=== PATIENT | female | born 1950 | race Caucasian/White ===

== ENCOUNTER → 2024-02-15 10:28 | Outpatient (CLI) | payer MEDICARE, SELFPAY ==
--- NOTE | 2024-02-15 10:31 | DI.ECHO.S_ITS ---
[place] [facility]---------[facility] : : [address] : [address] : : [id number] : : Phone: [phone] Echocardiogram Report + + :Name: MARLINE OVALLES Study Date: 02/15/2024 Height: 61 in : :[facility] ReadingLocation: Weight: 142 lb : : Gender: Female BSA: 1.6 m2 : :: 1950 Age: 73 yrs BP: 199/88 mmHg: :Reason For Study: MODERATE MITRAL REGURGITATION : :Ordering Physician: DAYANNA, : :DEBBIE Performed By: Omkar Boss : :Referring: DEBBIE ALAN : + + Interpretation Summary The left ventricle is normal in size. The ejection fraction is estimated to be 55-60%. The right ventricle is at the upper limits of normal in size. The right ventricular systolic function is normal. The left atrium is severely dilated.A patent foramen ovale is suspected. There is mild mitral valve prolapse. There is prolapse of the anterior mitral valve leaflet. There is moderate to severe mitral regurgitation. The mitral regurgitant jet is eccentrically directed. There is borderline tricuspid valve prolapse. There is moderate tricuspid regurgitation. The right ventricular systolic pressure is estimated to be at least 67 mmHg based on an estimated right atrial pressure of 3 mm Hg. There is severe pulmonary hypertension. BP: 199/88 mmHg Procedure: A two-dimensional transthoracic echocardiogram with color flow and Doppler was performed. The study quality was technically good. There is no prior echocardiogram noted for this patient. The patient was in normal sinus rhythm during the exam. The patient had a bundle branch block rhythm during the exam. Left Ventricle: The left ventricle is normal in size. There is normal left ventricular wall thickness. There is no thrombus. The ejection fraction is estimated to be 55-60%. There are no focal wall motion abnormalities. MV E/A: 0.82 Med Peak E' Carlitos: 6.7 cm/sec E/E' med: 11.8. Right Ventricle: The right ventricle is at the upper limits of normal in size. The right ventricular systolic function is normal. Atria: The left atrium is severely dilated. The right atrium is mildly dilated. The interatrial septum bows toward right atrium consistent with elevated left atrial pressure. A patent foramen ovale is suspected. Mitral Valve: The mitral valve leaflets appear mildly thickened, but open well. There is mild mitral valve prolapse. There is prolapse of the anterior mitral valve leaflet. There is moderate to severe mitral regurgitation. The mitral regurgitant jet is eccentrically directed. Aortic Valve: The aortic valve is trileaflet. The aortic valve opens well. There is no aortic valve stenosis. There is no aortic regurgitation. Tricuspid Valve: There is borderline tricuspid valve prolapse. There is moderate tricuspid regurgitation. The right ventricular systolic pressure is estimated to be at least 67 mmHg based on an estimated right atrial pressure of 3 mm Hg. There is severe pulmonary hypertension. Pulmonic Valve: The pulmonic valve is normal in structure and function. There is trace pulmonic regurgitation. Great Vessels: The aortic root is normal size. The dimensions of the ascending aorta are normal. The pulmonary artery is normal size. The IVC is of normal diameter and collapses greater than 50% with a sniff. This suggests a low right atrial pressure of 3 mm Hg. Pericardium/ Pleura There is no pericardial effusion. There is no pleural effusion. MMode/2D Measurements & Calculations LVIDd: 5.5 cm LVOT diam: 2.3 cm LVIDs: 3.3 cm Ao root diam: 3.4 cm FS: 40.2 % asc Aorta Diam: 3.0 cm EPSS: 0.55 cm Ao Arch Diam (Prox Trans): 2.4 cm IVSd: 0.68 cm LVPWd: 0.81 cm LV chaudhary. diameter/BSA (cm/m^2): 3.3 LV sys. diameter/BSA (cm/m^2): 2.0 LA A2 area: 26.7 cm2 RA long axis: 5.1 cm LA A4 area: 24.8 cm2 RA area: 18.5 cm2 LA length (vol): 5.9 cm RA vol: 57.6 ml LA vol: 94.4 ml RA : 35.3 ml/m2 LA vol index: 57.8 ml/m2 IVC diam: 2.0 cm RVD1 (basal): 3.8 cm TAPSE: 3.2 cm Doppler Measurements & Calculations Ao V2 max: 157.6 cm/sec LVOT Max Carlitos: 105.9 cm/sec Ao V2 mean: 104.2 cm/sec LV V1 max P.5 mmHg Ao max P.9 mmHg LV V1 VTI: 24.3 cm Ao mean P.0 mmHg VAHID(I,D): 2.9 cm2 Ao V2 VTI: 34.1 cm VAHID(V,D): 2.7 cm2 sev ratio: 0.71 VAHID indexed to BSA (cm^2/m^2): 1.8 MV E max carlitos: 79.3 cm/sec TR max carlitos: 401.4 cm/sec MV A max carlitos: 97.3 cm/sec TR max P.4 mmHg MV E/A: 0.82 PA V2 max: 80.9 cm/sec Med Peak E' Carlitos: 6.7 cm/sec PA V2 mean: 49.1 cm/sec E/E' med: 11.8 PA mean P.1 mmHg Lat Peak E' Carlitos: 10.4 cm/sec PA pr(Accel): 25.9 mmHg E/E' lat: 7.6 E/e' average: 9.7 MV dec time: 0.19 sec SV(LVOT): 99.2 ml Reading Physician:05:09 PM
== END ==
PROVIDERS: PCP Nurse Practitioner Acute Care; Referring Provider Nurse Practitioner Acute Care; Visit Provider Nurse Practitioner Acute Care
DX: I08.1 Rheumatic disorders of both mitral and tricuspid valves (principal); I27.20 Pulmonary hypertension, unspecified
CPT/HCPCS: 93306

== ENCOUNTER → 2024-12-26 09:10 | Outpatient (CLI) | payer MEDICARE, SELFPAY ==
--- NOTE | 2024-12-26 09:16 | DI.ECHO.S_ITS ---
:Name: MARLINE OVALLES Study Date: 12/26/2024 Height: 61 in : :[facility] ReadingLocation: Weight: 143 lb : : Gender: Female BSA: 1.6 m2 : :: 1950 Age: 74 yrs BP: 120/80 mmHg: :Reason For Study: ATRIAL FIBRILLATION : :Ordering Physician: GAMAL HAN Performed By: Daisy Winchester : :Referring: GAMAL HAN : + + Interpretation Summary The patient was in atrial fibrillation with heart rates between 98-132 bpm during the exam. Previously sinus. The left ventricle is normal in size. The ejection fraction is estimated to be 20-25%. Previous LVEF 50 to 55% Left ventricular systolic function is severely reduced. There is severe global hypokinesis of the left ventricle. The right ventricle is mild to moderately dilated. Right ventricular systolic function is moderately reduced. A mitral valve clip is present. There is mild to moderate mitral regurgitation. Mean gradient across mitral valve about 4 mmHg. There is mild aortic regurgitation. The tricuspid annulus is dilated. There is moderate to severe tricuspid regurgitation. Compared to the prior echo exam, there has been an increase in TR severity. The right ventricular systolic pressure is estimated to be at least 50 mmHg based on an estimated right atrial pressure of 15 mm Hg. Previously 56 mmHg. There is a small pericardial effusion noted. No echo indication of cardiac tamponade. Procedure: A two-dimensional transthoracic echocardiogram with color flow and Doppler was performed. The study quality was technically adequate. Patient was scanned in a supine and mostly seated position due to coughing when laying down. Comparison is made with the echocardiogram of 06/20/2024. The patient was in atrial fibrillation with heart rates between 98-132 bpm during the exam. The patient had a bundle branch block rhythm during the exam. Left Ventricle: The left ventricle is normal in size. Left ventricular wall thickness is borderline increased. There is no thrombus. The ejection fraction is estimated to be 20-25%. Left ventricular systolic function is severely reduced. There is severe global hypokinesis of the left ventricle. Diastolic function could not be accurately assessed due to atrial fibrillation. Right Ventricle: The right ventricle is mild to moderately dilated. Right ventricular systolic function is moderately reduced. Atria: The left atrium is severely dilated. There has been no significant change since the previous study. The right atrium is severely dilated. A patent foramen ovale is present. Mitral Valve: A mitral valve clip is present. Mean gradient across mitral valve about 4 mmHg. There is mild to moderate mitral regurgitation. There are multiple regurgitant jets present. Aortic Valve: The aortic valve is trileaflet. The aortic valve opens well. The left ventricular stroke volume index is 13.21 ml/m?? (normal being >35 ml/m??). There is mild aortic regurgitation. Tricuspid Valve: The tricuspid annulus is dilated. There is moderate to severe tricuspid regurgitation. The right ventricular systolic pressure is estimated to be at least 50 mmHg based on an estimated right atrial pressure of 15 mm Hg. Compared to the prior echo exam, there has been an increase in TR severity. Pulmonic Valve: The pulmonic valve leaflets are thin and pliable; valve motion is normal. There is mild pulmonic regurgitation. Great Vessels: The aortic root is normal size. The dimensions of the ascending aorta are normal. The IVC is dilated (diameter is greater than 2.1 cm) and it collapses less than 50% with a sniff. This suggests a high right atrial pressure of 15 mm Hg. Pericardium/ Pleura There is a small pericardial effusion noted. There are no echocardiographic indications of cardiac tamponade. There is no pleural effusion. MMode/2D Measurements & Calculations LVIDd: 4.1 cm LVOT diam: 2.0 cm LVIDs: 3.5 cm Ao root diam: 3.2 cm FS: 15.4 % asc Aorta Diam: 3.5 cm IVSd: 1.1 cm Ao Arch Diam (Prox Trans): 2.7 cm LVPWd: 0.77 cm LV chaudhary. diameter/BSA (cm/m^2): 2.5 LV sys. diameter/BSA (cm/m^2): 2.1 LA A2 area: 34.0 cm2 RA long axis: 5.6 cm LA A4 area: 26.6 cm2 RA area: 26.2 cm2 LA length (vol): 6.6 cm RA vol: 103.8 ml LA vol: 116.3 ml RA : 63.3 ml/m2 LA vol index: 71.0 ml/m2 IVC diam: 2.8 cm RVD1 (basal): 4.6 cm RVD2 (mid): 4.3 cm TAPSE: 1.2 cm Doppler Measurements & Calculations Ao V2 max: 90.2 cm/sec LVOT Max Carlitos: 52.8 cm/sec Ao V2 mean: 59.0 cm/sec LV V1 max P.1 mmHg Ao max P.9 mmHg LV V1 VTI: 7.5 cm Ao mean P.8 mmHg VAHID(I,D): 1.7 cm2 Ao V2 VTI: 13.6 cm VAHID(V,D): 1.8 cm2 sev ratio: 0.55 VAHID indexed to BSA (cm^2/m^2): 1.0 Lat Peak E' Carlitos: 7.5 cm/sec TR max carlitos: 294.3 cm/sec MVA(VTI): 0.61 cm2 TR max P.7 mmHg PA pr(Accel): 43.0 mmHg MV V2 mean: 89.3 cm/sec SV(LVOT): 22.8 ml MV mean P.0 mmHg MV V2 VTI: 37.4 cm Reading Physician:04:50 PM
== END ==
LOC: ECHO 09:15
PROVIDERS: PCP Nurse Practitioner; Referring Provider Internal Medicine Cardiovascular Disease; Visit Provider Internal Medicine Cardiovascular Disease
DX: I48.91 Unspecified atrial fibrillation (principal); I08.3 Combined rheumatic disorders of mitral, aortic and tricuspid valves; I31.39 Other pericardial effusion (noninflammatory); Z98.890 Other specified postprocedural states; Z95.818 Presence of other cardiac implants and grafts
CPT/HCPCS: 93306

== ENCOUNTER → 2025-02-13 14:49 | Outpatient (CLI) | payer MEDICARE, SELFPAY | LOC: ECHO 14:50 | PROVIDERS: PCP Nurse Practitioner; Referring Provider Nurse Practitioner; Visit Provider Internal Medicine Cardiovascular Disease | DX: I08.3 Combined rheumatic disorders of mitral, aortic and tricuspid valves (principal); I50.42 Chronic combined systolic (congestive) and diastolic (congestive) heart failure; I77.89 Other specified disorders of arteries and arterioles; Z79.899 Other long term (current) drug therapy; Z95.818 Presence of other cardiac implants and grafts; Z98.890 Other specified postprocedural states | CPT/HCPCS: 93306 ==

== ENCOUNTER → 2025-02-27 14:53 | Outpatient (CLI) | payer MEDICARE, SELFPAY | LOC: RESP 14:53 | PROVIDERS: PCP Nurse Practitioner; Referring Provider Internal Medicine Cardiovascular Disease; Visit Provider Internal Medicine Cardiovascular Disease | DX: Z79.899 Other long term (current) drug therapy (principal); R94.2 Abnormal results of pulmonary function studies | CPT/HCPCS: 94060; 94726; 94729 ==